=== PATIENT | female | born 1940 | race Caucasian/White ===

== ENCOUNTER → 2019-04-03 12:26 | Outpatient (CLI) | payer MEDICARE, OTHER, SELFPAY ==
[2019-04-03 13:26] LABS: Base Excess 19 mmol/L (-2 to +2); Bicarbonate 45.4 mmol/L (22-26); Blood Gas Specimen Type ART; O2 Delivery Device Nasal Can; PO2 91 mmHG (75-100); SITE L Brachial; SO2 96 % (95-99); Time Given 1310; Total Carbon Dioxide 48 mmol/L; pCO2 86.8 mmHg (35-45); pH 7.33 (7.35-7.45)
--- NOTE | 2019-04-03 14:08 | CPS ---
'S office called with critical results, this RT spoke with Leilani Kendall RN at their office. at [phone]
== END ==
LOC: LAB 12:38 → PSN 12:44
PROVIDERS: PCP Internal Medicine Pulmonary Disease; Referring Provider Internal Medicine Pulmonary Disease; Visit Provider Internal Medicine Pulmonary Disease
DX: R06.00 Dyspnea, unspecified (principal); R06.89 Other abnormalities of breathing
CPT/HCPCS: 36600; 82803